=== PATIENT | female | born 1950 | race Caucasian/White ===

== ENCOUNTER 2016-10-29 23:04 | Emergency (ER) | payer BC ==
[2016-10-29] MEDS ORDERED: TRULICITY0.75 MG/0. SC (23:22)
[2016-10-29] MEDS ORDERED: PROZAC40 M1 PO (23:22)
[2016-10-29] MEDS ORDERED: FENOFIBRATE150 MG PO (23:22)
[2016-10-29] MEDS ORDERED: LIPITOR20 M2 PO (23:23)
[2016-10-29] MEDS ORDERED: VASOTEC20 M1 PO (23:23)
[2016-10-29] MEDS ORDERED: GLUCOPHAGE XR500 M2 PO (23:24)
[2016-10-29] MEDS ORDERED: HCTZ 25MG25 MG PO (23:24)
[2016-10-30] MEDS ORDERED: MECLIZINE PO (01:34)
[2016-10-30 01:44] VITALS: BP 160/87
== END 2016-10-30 01:44 | disposition home or self-care (01) ==
LOC: ED 23:04
DX: R42 Dizziness and giddiness (principal); E11.65 Type 2 diabetes mellitus with hyperglycemia; Z79.84 Long term (current) use of oral hypoglycemic drugs; I10 Essential (primary) hypertension

== ENCOUNTER → 2016-11-04 | Outpatient (CLI) | payer BC ==
[2016-10-30 01:44] VITALS: BP 160/87
[~2016-11-04] MED LIST: FENOFIBRATE150 MG PO; GLUCOPHAGE XR500 M2 PO; HCTZ 25MG25 MG PO; LIPITOR20 M2 PO; MECLIZINE PO; PROZAC40 M1 PO; TRULICITY0.75 MG/0. SC; VASOTEC20 M1 PO
== END ==
LOC: RAD 12:00 → VAS 16:30
DX: R06.00 Dyspnea, unspecified (principal); I35.1 Nonrheumatic aortic (valve) insufficiency

== ENCOUNTER → 2017-04-25 | Outpatient (CLI) | payer BC | LOC: MAMMO 14:32 | DX: Z12.31 Encounter for screening mammogram for malignant neoplasm of breast (principal) | CPT/HCPCS: G0202 ==

== ENCOUNTER → 2018-05-22 | Outpatient (CLI) | payer MEDICARE | LOC: MAMMO 05-01 16:00 | DX: Z12.31 Encounter for screening mammogram for malignant neoplasm of breast (principal) ==

== ENCOUNTER 2018-10-18 16:00 | Outpatient (RCR) | payer MEDICARE | END 2018-10-18 16:30 | disposition home or self-care (01) | LOC: PT 16:00 | DX: M25.511 Pain in right shoulder (principal) ==

== ENCOUNTER → 2019-07-26 | Outpatient (CLI) | payer MEDICARE | LOC: RAD 09:07 | DX: M85.80 Other specified disorders of bone density and structure, unspecified site (principal) ==

== ENCOUNTER → 2019-08-19 | Outpatient (CLI) | payer MEDICARE | LOC: MAMMO 07-26 07:00 | DX: Z12.31 Encounter for screening mammogram for malignant neoplasm of breast (principal) ==

== ENCOUNTER 2019-12-26 08:00 | Outpatient (RCR) | payer MEDICARE | END 2019-12-26 08:30 | disposition still patient (30) | LOC: PT 08:00 | DX: M70.62 Trochanteric bursitis, left hip (principal) ==

== ENCOUNTER → 2020-09-01 | Outpatient (CLI) | payer MEDICARE | LOC: MAMMO 08:24 | DX: Z12.31 Encounter for screening mammogram for malignant neoplasm of breast (principal) ==

== ENCOUNTER → 2020-09-01 | Outpatient (CLI) | payer MEDICARE | LOC: RAD 08:22 | DX: N28.1 Cyst of kidney, acquired (principal); N20.0 Calculus of kidney ==

== ENCOUNTER → 2020-10-12 | Day surgery (SDC) | payer MEDICARE | LOC: MSO 07:23 | DX: D12.3 Benign neoplasm of transverse colon (principal); Z86.010 Personal history of colon polyps; Z90.710 Acquired absence of both cervix and uterus; Z90.79 Acquired absence of other genital organ(s); Z90.722 Acquired absence of ovaries, bilateral; Z79.84 Long term (current) use of oral hypoglycemic drugs; Z79.82 Long term (current) use of aspirin; J45.909 Unspecified asthma, uncomplicated; K21.9 Gastro-esophageal reflux disease without esophagitis; Z88.2 Allergy status to sulfonamides; Z88.0 Allergy status to penicillin; M19.90 Unspecified osteoarthritis, unspecified site; E11.9 Type 2 diabetes mellitus without complications; F32.9 Major depressive disorder, single episode, unspecified; K74.60 Unspecified cirrhosis of liver | CPT/HCPCS: 00811; J2704; J3010; J7120 ==

== ENCOUNTER 2021-10-19 17:05 | Emergency (ER) | payer MEDICARE ==
[~2021-10-19] VITALS: Ht 172.7 cm; Wt 92.7 kg
[~2021-10-19 17:05] MED LIST changes: -ASPIRIN 81M81 MG/TA2 PO
[2021-10-19] MEDS ORDERED: ASPIRIN 81M81 MG/TA2 PO (17:19)
[2021-10-19 20:15] VITALS: BP 148/82
== END 2021-10-19 20:15 | disposition home or self-care (01) ==
LOC: ED 17:05
DX: E11.9 Type 2 diabetes mellitus without complications (principal); M79.661 Pain in right lower leg; R79.1 Abnormal coagulation profile; Z87.891 Personal history of nicotine dependence; Z86.718 Personal history of other venous thrombosis and embolism

== ENCOUNTER → 2021-10-19 | Outpatient (CLI) | payer MEDICARE ==
[~2021-10-19] MED LIST changes: +ASPIRIN 81M81 MG/TA2 PO
[2021-10-19 14:58] LABS: POTASSIUM 4.4 mmol/L (3.5-5.1); SODIUM 137 mmol/L (136-145)
[2021-10-19 14:59] LABS: BASO # 0.06 K/mm3 (0.02-0.10); CALCIUM 9.4 mg/dL (8.3-10.5); EOS # 0.19 K/mm3 (0.04-0.40); EOS % 2.2 % (1.0-5.0); HEMATOCRIT 43.5 % (37.0-47.0); HEMOGLOBIN 14.6 g/dL (12.5-16.0); LYMPH# 1.58 K/mm3 (1.50-4.00); MEAN CELL VOLUME 92 fl (78-100); MEAN CORPUSCULAR HEMOGLOBIN 31 pg (27-31); MEAN CORPUSCULAR HGB CONC 34 g/dL (33-37); MEAN PLATELET VOLUME 9.3 fl (7.4-10.4); MONO # 0.66 K/mm3 (0.20-0.80); NEU # 5.98 K/mm3 (1.40-6.50); PLATELET COUNT 305 K/mm3 (130-400); RED BLOOD COUNT 4.71 M/mm3 (4.10-5.30); RED CELL DISTRIBUTION WIDTH 12.6 % (11.5-14.5); WHITE BLOOD COUNT 8.5 K/mm3 (4.8-10.8)
[2021-10-19 15:00] LABS: GLUCOSE 262 mg/dL (65-105); TOTAL PROTEIN 6.9 g/dL (6.2-8.1)
[2021-10-19 15:01] LABS: CARBON DIOXIDE 25 mmol/L (23-31)
[2021-10-19 15:02] LABS: TOTAL BILIRUBIN 0.5 mg/dL (0.2-1.2)
[2021-10-19 15:05] LABS: AST-SGOT 21 U/L (5-34)
[2021-10-19 15:07] LABS: ALT/SGPT 32 U/L (0-55)
[2021-10-19 15:18] LABS: TROPONIN-I < 0.030 ng/mL (<0.030)
[2021-10-19 15:40] LABS: URINE APPEARANCE HAZY; URINE BILIRUBIN NEGATIVE (NEGATIVE); URINE BLOOD TRACE (NEGATIVE); URINE COLOR YELLOW; URINE GLUCOSE NEGATIVE (NEGATIVE); URINE KETONE NEGATIVE (NEGATIVE); URINE LEUKOCYTE ESTERASE TRACE (NEGATIVE); URINE MUCUS PRESENT (NOT PRESENT); URINE NITRATE NEGATIVE (NEGATIVE); URINE PROTEIN(semi-quant) 2+ (NEGATIVE); URINE UROBILINOGEN NORMAL (NORMAL)
[2021-10-19 16:35] LABS: D-DIMER 14.08 mg/L FEU (0.15-0.50)
== END ==
LOC: LAB 14:26
PROVIDERS: Nurse Practitioner Family
DX: R07.89 Other chest pain (principal)
CPT/HCPCS: Q9967

== ENCOUNTER → 2021-10-20 | Outpatient (CLI) | payer MEDICARE ==
[~2021-10-20] MED LIST changes: +ASPIRIN 81M81 MG/TA2 PO
== END ==
LOC: VAS 01:52
DX: M79.605 Pain in left leg (principal); M79.604 Pain in right leg; Z86.718 Personal history of other venous thrombosis and embolism

== ENCOUNTER → 2021-11-04 | Outpatient (CLI) | payer MEDICARE | LOC: RAD 10:45 → VAS 10:47 | DX: R06.00 Dyspnea, unspecified (principal) ==

== ENCOUNTER 2021-12-21 10:07 | Outpatient (RCR) | payer MEDICARE ==
[2021-12-24] MEDS ORDERED: PROAIR HFA0.09 MG/AC IH (10:44)
[2021-12-24] MEDS ORDERED: BRILINTA90 MG PO (10:46)
[2021-12-24] MEDS ORDERED: NORVASC 10MG10 MG PO (10:46)
[2021-12-24] MEDS ORDERED: CARVEDILOL6.25 MG PO (10:47)
[2021-12-24] MEDS ORDERED: GLIPIZIDE10 M2 PO (10:49)
[2021-12-24] MEDS ORDERED: FUROSEMIDE20 MG PO (10:49)
[2021-12-24] MEDS ORDERED: ATORVASTATIN CA80 MG PO (10:50)
[2021-12-24] MEDS ORDERED: CLARITIN10 M1 PO (10:50)
[2021-12-24] MEDS ORDERED: METFOMIN HYDRO850 MG PO (10:51)
[2021-12-24] MEDS ORDERED: SINGULAIR 110 MG/TAB PO (10:51)
== END 2021-12-30 | disposition home or self-care (01) ==
LOC: CARDREHAB
DX: Z48.812 Encounter for surgical aftercare following surgery on the circulatory system (principal); Z95.5 Presence of coronary angioplasty implant and graft

== ENCOUNTER 2021-12-24 10:20 | Emergency (ER) | payer MEDICARE ==
[2021-12-24] MEDS ORDERED: PROAIR HFA0.09 MG/AC IH (10:44)
[2021-12-24] MEDS ORDERED: BRILINTA90 MG PO (10:46)
[2021-12-24] MEDS ORDERED: NORVASC 10MG10 MG PO (10:46)
[2021-12-24] MEDS ORDERED: CARVEDILOL6.25 MG PO (10:47)
[2021-12-24] MEDS ORDERED: GLIPIZIDE10 M2 PO (10:49)
[2021-12-24] MEDS ORDERED: FUROSEMIDE20 MG PO (10:49)
[2021-12-24] MEDS ORDERED: ATORVASTATIN CA80 MG PO (10:50)
[2021-12-24] MEDS ORDERED: CLARITIN10 M1 PO (10:50)
[2021-12-24] MEDS ORDERED: METFOMIN HYDRO850 MG PO (10:51)
[2021-12-24] MEDS ORDERED: SINGULAIR 110 MG/TAB PO (10:51)
[2021-12-24 11:08] LABS: BASO # 0.03 K/mm3 (0.02-0.10); EOS # 0.13 K/mm3 (0.04-0.40); HEMATOCRIT 40.2 % (37.0-47.0); HEMOGLOBIN 13.6 g/dL (12.5-16.0); MEAN CELL VOLUME 91 fl (78-100); MEAN CORPUSCULAR HEMOGLOBIN 31 pg (27-31); MEAN CORPUSCULAR HGB CONC 34 g/dL (33-37); MEAN PLATELET VOLUME 9.5 fl (7.4-10.4); MONO # 0.58 K/mm3 (0.20-0.80); NEU # 4.51 K/mm3 (1.40-6.50); PLATELET COUNT 215 K/mm3 (130-400); RED BLOOD COUNT 4.44 M/mm3 (4.10-5.30); RED CELL DISTRIBUTION WIDTH 12.5 % (11.5-14.5); WHITE BLOOD COUNT 6.5 K/mm3 (4.8-10.8)
[2021-12-24 11:12] LABS: ALBUMIN 3.9 g/dL (3.4-4.8); POTASSIUM 4.1 mmol/L (3.5-5.1)
[2021-12-24 11:13] LABS: CALCIUM 9.3 mg/dL (8.3-10.5)
[2021-12-24 11:14] LABS: TOTAL PROTEIN 6.5 g/dL (6.2-8.1)
[2021-12-24 11:16] LABS: TOTAL BILIRUBIN 0.8 mg/dL (0.2-1.2)
[2021-12-24 13:13] LABS: URINE APPEARANCE CLEAR; URINE BILIRUBIN NEGATIVE (NEGATIVE); URINE COLOR YELLOW; URINE KETONE NEGATIVE (NEGATIVE); URINE NITRATE NEGATIVE (NEGATIVE); URINE PROTEIN(semi-quant) NEGATIVE (NEGATIVE); URINE UROBILINOGEN NORMAL (NORMAL)
[2021-12-24 13:14] LABS: URINE BLOOD 50 ery/uL (NEGATIVE); URINE LEUKOCYTE ESTERASE NEGATIVE (NEGATIVE); URINE WBC 0-1 /hpf (0-3)
[2021-12-24 13:27] VITALS: BP 126/67
== END 2021-12-24 13:28 | disposition home or self-care (01) ==
LOC: ED 10:20
PROVIDERS: Nurse Practitioner
DX: E11.65 Type 2 diabetes mellitus with hyperglycemia (principal); Z20.822 Contact with and (suspected) exposure to COVID-19
CPT/HCPCS: J7030

== ENCOUNTER 2022-01-05 14:00 | Outpatient (RCR) | payer MEDICARE ==
[~2022-01-05 14:00] MED LIST changes: +ATORVASTATIN CA80 MG PO; +BRILINTA90 MG PO; +CARVEDILOL6.25 MG PO; +CLARITIN10 M1 PO; +FUROSEMIDE20 MG PO; +GLIPIZIDE10 M2 PO; +METFOMIN HYDRO850 MG PO; +NORVASC 10MG10 MG PO; +PROAIR HFA0.09 MG/AC IH; +SINGULAIR 110 MG/TAB PO
== END 2022-01-30 | disposition still patient (30) ==
LOC: CARDREHAB
DX: Z48.812 Encounter for surgical aftercare following surgery on the circulatory system (principal); Z95.5 Presence of coronary angioplasty implant and graft

== ENCOUNTER 2022-02-01 08:01 | Outpatient (RCR) | payer MEDICARE | END 2022-03-02 | disposition home or self-care (01) | LOC: CARDREHAB | DX: Z48.812 Encounter for surgical aftercare following surgery on the circulatory system (principal); Z95.5 Presence of coronary angioplasty implant and graft ==

== ENCOUNTER 2022-02-08 18:27 | Emergency (ER) | payer MEDICARE ==
[~2022-02-08] VITALS: Ht 172.7 cm; Wt 91.8 kg
[2022-02-08 19:07] LABS: HEMOGLOBIN 14.1 g/dL (12.5-16.0); MEAN CELL VOLUME 92 fl (78-100); MEAN CORPUSCULAR HEMOGLOBIN 31 pg (27-31); MEAN CORPUSCULAR HGB CONC 34 g/dL (33-37); MEAN PLATELET VOLUME 9.1 fl (7.4-10.4); PLATELET COUNT 287 K/mm3 (130-400); RED BLOOD COUNT 4.57 M/mm3 (4.10-5.30); RED CELL DISTRIBUTION WIDTH 12.9 % (11.5-14.5); WHITE BLOOD COUNT 7.8 K/mm3 (4.8-10.8)
[2022-02-08 19:19] LABS: ALBUMIN 4.3 g/dL (3.4-4.8); POTASSIUM 4.5 mmol/L (3.5-5.1)
[2022-02-08 19:21] LABS: CALCIUM 9.5 mg/dL (8.3-10.5)
[2022-02-08 19:22] LABS: TOTAL PROTEIN 7.3 g/dL (6.2-8.1)
[2022-02-08 19:24] LABS: TOTAL BILIRUBIN 0.5 mg/dL (0.2-1.2)
[2022-02-08 19:48] LABS: URINE WBC 0 /hpf (0-3)
[2022-02-08 19:57] LABS: LYMPHOCYTE 5 % (20-51); MONOCYTE 1 % (3-10); NEUTROPHILS 94 % (42-75)
[2022-02-08 20:02] LABS: URINE APPEARANCE CLEAR; URINE BILIRUBIN NEGATIVE (NEGATIVE); URINE BLOOD 250 ery/uL (NEGATIVE); URINE COLOR YELLOW; URINE KETONE 1+ (NEGATIVE); URINE LEUKOCYTE ESTERASE NEGATIVE (NEGATIVE); URINE NITRATE NEGATIVE (NEGATIVE); URINE PROTEIN(semi-quant) TRACE (NEGATIVE); URINE UROBILINOGEN NORMAL (NORMAL)
[2022-02-08 22:28] LABS: POTASSIUM 4.1 mmol/L (3.5-5.1)
[2022-02-08 22:29] LABS: CALCIUM 8.8 mg/dL (8.3-10.5)
[2022-02-08 23:04] VITALS: BP 143/85
== END 2022-02-08 23:05 | disposition home or self-care (01) ==
LOC: ED 18:27
PROVIDERS: Physician Assistant
DX: E11.65 Type 2 diabetes mellitus with hyperglycemia (principal); E86.0 Dehydration; Z79.84 Long term (current) use of oral hypoglycemic drugs
CPT/HCPCS: J1815; J7030

== ENCOUNTER → 2022-09-02 | Outpatient (CLI) | payer MEDICARE | LOC: RAD 15:43 | DX: R05.1 Acute cough (principal) ==

== ENCOUNTER 2022-09-06 14:00 | Outpatient (RCR) | payer MEDICARE | END 2022-09-30 | disposition home or self-care (01) | LOC: PT | DX: M16.11 Unilateral primary osteoarthritis, right hip (principal) ==

== ENCOUNTER → 2024-04-11 | Outpatient (CLI) | payer MEDICARE ==
[2024-04-11 15:19] LABS: CALCIUM 9.4 mg/dL (8.3-10.5)
== END ==
LOC: LAB 14:42
PROVIDERS: Internal Medicine Pulmonary Disease
DX: R06.02 Shortness of breath (principal)